=== PATIENT | female | born 1950 | race Caucasian/White ===

== ENCOUNTER → 2016-05-30 | Outpatient (CLI) | payer MEDICARE ==
[~2016-05-30] MED LIST: DIAZEPAM2 M1 PO; HYDROCODONE-APA1 TA1 PO; PREDNISONE20 MG PO; TESSALON PERLE100 MG PO
[2016-05-30 16:14] LABS: HEMOGLOBIN 14.5 g/dL (12.2-16.2); LYMPH # 1.9 K/mm3 (0.7-4.5); LYMPH % 23.7 % (10-50.0)
[2016-05-30 16:46] LABS: BUN 13 mg/dL (7-18)
[2016-05-30 16:56] LABS: GFR (ESTIMATED) 71 ML/MIN (59-)
[2016-06-01 08:50] LABS: Folate (Folic Acid) 9.2 ng/mL (>3.0); Vitamin D, 25-Hydroxy 15.9 ng/mL (30.0-100.0)
== END ==
LOC: LAB 15:56
PROVIDERS: Physician Assistant
DX: G62.9 Polyneuropathy, unspecified (principal); R42 Dizziness and giddiness; R51 Headache; R53.83 Other fatigue; R05 Cough; Z79.899 Other long term (current) drug therapy

== ENCOUNTER → 2016-07-07 | Outpatient (CLI) | payer MEDICARE, OTHER ==
--- NOTE | 2016-07-07 13:53 | RADIOLOGY REPORT PS360 ---
CT CALCIUM SCORING W/3D CLINICAL INDICATION: ABNORMAL EKG,CHEST PAIN ORDERING PHYSICIAN: HUMERA SHELL MD PATIENT AGE: 66 years COMPARISON: None FINDINGS: The coronary artery calcium score is 0 indicating very low cardiovascular disease risk Images show calcified nodes in the mediastinum as well as a 4 mm noncalcified nodule in the right middle lobe. IMPRESSION: Coronary artery calcium score is 0 indicating very low cardiovascular disease risk
--- NOTE | 2016-07-10 07:22 | RADIOLOGY REPORT PS360 ---
PROCEDURE: 2-D M-mode and color Doppler study INDICATIONS FOR THE TEST: Chest pain+ COPD+ Heart Murmur Tobacco Smoking+ Palpitations+ Fatigue Syncope Edema Hypertension Diabetes Mellitus Rheumatic Fever SOB [place] Obesity Hyperlipidemia Family History HD+ Additional History abn ekg PATIENT INFORMATION HEIGHT: 65 WEIGHT: 163 GENDER: Female B/P: 151/84 2-D/M-MODE INTERPRETATION: 2-D MEASUREMENTS OBSERVED VALUES IN CMS Right Ventricular Dimension (RVDd) 2.3 Interventricular Septum (Thickness)(IVsd) 1.0 Left Ventricular Internal Dimensions(LVIDd) 3.8 Left Ventricular Posterior Wall (Thickness)(LVPWd) 1.0 Aortic Root 2.1 Aortic Cusp Separation 2.3 Left Atrial Dimensions (LAD) 2.9 2D 1. The left atrium is normal size, left ventricle is normal size, there is no concentric left ventricular hypertrophy present, visually estimated ejection fraction 55% with no obvious regional wall motion abnormality. 2. The right atrium and right ventricle are normal size and contractility. 3. The aortic valve is minimally thickened and calcified 4. The mitral valve leaflets are minimally thickened. 5. The tricuspid valve is structurally normal. 6. The pulmonic valve is not well visualized. 7. No significant pericardial effusion noted. DOPPLER INTERROGATION: Doppler interrogation of the aortic mitral and tricuspid valvular presence of mild mitral and tricuspid regurgitation, tricuspid and enteric velocity insufficient for cannulation of the right ventricular systolic pressure, grade 1 diastolic dysfunction seen without tissue Doppler evidence of raised left atrial pressure. CONCLUSION: 1. Normal left ventricular size, preserved left ventricular systolic function, visually estimated ejection fraction 55% with no obvious regional wall motion abnormality. Grade 1 diastolic dysfunction seen without tissue Doppler evidence of raised left atrial pressure. 2. Mild mitral and tricuspid regurgitation, tricuspid regurgitant jet velocity insufficient for calculation of the right ventricular systolic pressure. 3. No significant pericardial effusion noted.
--- NOTE | 2016-07-10 14:31 | RADIOLOGY REPORT PS360 ---
History and Indications: Chest pain, palpitation, tobacco use, family history and abnormal EKG. Procedure: Patient received 0.4 mg of Lexiscan, resting heart rate was a 70 bpm, resting blood pressure 151/84, with Lexiscan maximum heart rate achieved was 99 bpm which is less than 85% of the maximum predicted heart rate and a blood pressure was 152/83. With Lexiscan patient complained of mild stomach cramps. Electrocardiogram: Resting electrocardiogram showed sinus rhythm borderline first degree AV block right ventricular conduction delay rightward axis. With Lexiscan there is less than 1.[address] segment segment depression noted from the baseline EKG. The EKG portion of the Lexiscan is nondiagnostic. Cardiac stress and resting SPECT images: Cardiac stress and resting SPECT images were obtained using technetium 99 Myoview 10.9 mCi at rest and 30.2 mCi at stress, gated SPECT further analysis of segmental wall motion and calculation of the ejection fraction also done. Cardiac stress and resting SPECT images show a mild fixed defect in the anterior wall with normal contractility on the gated SPECT is likely secondary to soft tissue attenuation, no reversible ischemia seen. Computer derived ejection fraction is over 65% with no obvious regional wall motion abnormality. Right ventricle is normal size and contractility. Conclusion: 1. The EKG portion of the Lexiscan is nondiagnostic. 2. No obvious scintigraphic evidence of reversible ischemia seen. Computer derived ejection fraction is over 65% with no obvious regional wall motion abnormality, right ventricle is normal size and contractility.
== END ==
LOC: RAD 06:22
DX: R07.9 Chest pain, unspecified (principal); R94.31 Abnormal electrocardiogram [ECG] [EKG]; J44.9 Chronic obstructive pulmonary disease, unspecified; Z72.0 Tobacco use
CPT/HCPCS: A9502; J2785